=== PATIENT | female | born 1960 | race Caucasian/White ===

== ENCOUNTER 2019-12-14 10:28 | Emergency (ER) | payer OTHER, SELFPAY ==
[2019-12-14 10:31] VITALS: BP 168/93; PULSE 98; RESP 17; TEMP 36.9; O2SAT 92; BMI 39.4
--- NOTE | 2019-12-14 10:42 | RAD_ITS ---
STUDY: X-RAY CHEST REASON FOR EXAM: Female, 59 years old. COUGH, INCREASING SOB, SORE THROAT -- PT HAS ASTHMA TECHNIQUE: Single AP portable view of the chest. COMPARISON: None. FINDINGS: The lungs are clear and expanded. Scattered calcified granulomas. There is no demonstrated pleural abnormality. Normal size heart. Normal mediastinum and maya. Normal visualized pulmonary arteries. Normal visualized aortic arch and descending thoracic aorta. Normal visualized thoracic spine. Normal visualized ribs, clavicles, and shoulders. There is no demonstrated abnormality of the visualized soft tissue structures of the upper abdomen. RAD/Chest 1 View (Portable) IMPRESSION: Normal x-ray examination of the chest. Electronically Signed: Hira Wharton, at 11:14 EDT , Service support ,
--- NOTE | 2019-12-14 10:45 | ED.DCSUM_ITS ---
- ER Visit Summary Date of Service: 12/14/19 Chief Complaint: Cough and shortness of breath History of Present Illness: The patient is a 59 F with a history of asthma. She had cough and shortness of breath over the past week. She took prednisone but it is not helping. She uses her inhalers occasionally. She is not currently on antibiotics. No fevers. No chest pain. No history of blood clots. Physical Examination: Afebrile and vital signs unremarkable. Patient alert and oriented. Normal mood and mentation. No acute distress. Moving, speaking, breathing comfortably. Heart regular. No respiratory distress. Skin normal. Calves soft and supple. Test Results: Chest x-ray pending. Emergency Department Course and Treatment: Patient presents with mild to moderate asthma symptoms. No indication for an alternate diagnosis at this time. There is concern this could be triggered by coronavirus. Precautions were maintained. X-rays negative. Prescription for prednisone, azithromycin. Continue inhalers at home. Maintain contact and social precautions at home for coronavirus. Return for any new or worsening issues. Treatment Plan: As above Disposition: Discharge Impression: Asthma, suspected coronavirus This note was generated with [employer] software. It may contain incorrect words, spelling, and punctuation that were not noted in review of the chart prior to signing ED Disposition - Plan for ED Patient: Referrals: Jorge Luis Israel MD [Primary Care Provider] -
--- NOTE | 2019-12-14 11:33 | ED.DEP ---
ED Disposition - Plan for ED Patient: Instructions: ED REACTIVE [employer] DISEASE Adult Prescriptions: Prednisone [Deltasone] 60 mg PO DAILY #15 tab Prescription Printed Azithromycin [Zithromax Z-Stephan] 250 mg PO UD #1 box Prescription Printed Referrals: Jorge Luis Israel MD [Primary Care Provider] -
[2019-12-14 11:44] VITALS: BP 123/68; PULSE 59; RESP 16; O2SAT 97
== END 2019-12-14 11:50 | disposition home or self-care (01) ==
LOC: ED 11:22
PROVIDERS: Emergency Provider Emergency Medicine; PCP Family Medicine
DX: J45.909 Unspecified asthma, uncomplicated (principal); Z72.0 Tobacco use
CPT/HCPCS: 71045; 99282

== ENCOUNTER → 2020-04-03 | Outpatient (CLI) | payer OTHER, SELFPAY | END | disposition home or self-care (01) | LOC: LABSPEC 10:02 | PROVIDERS: PCP Family Medicine; Referring Provider Family Medicine; Visit Provider Family Medicine | DX: Z20.828 Contact with and (suspected) exposure to other viral communicable diseases (principal) | CPT/HCPCS: 87635; G2023; U0003 ==

== ENCOUNTER 2020-12-04 10:22 | Outpatient (RCR) | payer OTHER, SELFPAY ==
[2020-12-04] MEDS: COVID-19 VACC, MRNA(PFIZER)/PF 30 MCG/0.3 ML SYRINGE IM (10:13)
[2020-12-25] MEDS: COVID-19 VACC, MRNA(PFIZER)/PF 30 MCG/0.3 ML SYRINGE IM (10:03)
== END 2021-02-26 23:59 ==
LOC: IMMUN 10:22
PROVIDERS: PCP Family Medicine; Visit Provider Family Medicine
DX: Z23 Encounter for immunization (principal)
CPT/HCPCS: 0001A; 0002A; 91300

== ENCOUNTER → 2023-06-15 | Outpatient (CLI) | payer OTHER, SELFPAY ==
--- NOTE | 2023-06-15 06:54 | CT_ITS ---
INDICATION: ASYMPTOMATIC MICROSCOPIC HEMATURIA EXAMINATION: CT ABDOMEN AND PELVIS WITH AND WITHOUT CONTRAST - CT Abdomen And Pelvis WO/W Contrast Injection TECHNIQUE: Helically acquired images were obtained of the abdomen and pelvis with noncontrast, corticomedullary venous phase, and delayed phase. Coronal and sagittal reformats of the venous are submitted. Coronal and noncontrast phase reformats created at the workstation. A radiation dose optimization technique was used for this scan. IV Contrast dosage and agent: 100 mL [id number] Oral contrast: None. COMPARISON: Chest radiograph December 14, 2019. FINDINGS: LOWER CHEST: Lung bases are clear. Cardiac size upper limits of normal without pericardial effusion. LIVER: Homogeneous with mild hepatomegaly. No focal mass. GALLBLADDER AND BILIARY TREE: Cholelithiasis of the gallbladder neck without gallbladder distention, wall thickening, or surrounding inflammation.. No gallbladder distension or wall edema. No intra- or extrahepatic biliary ductal dilation. PANCREAS: No focal cystic or solid mass. SPLEEN: Normal size without focal cystic or solid mass. ADRENAL GLANDS: No nodules. KIDNEYS AND URETERS: No nephrolithiasis. No hydronephrosis. Minimal bilateral perinephric stranding which is commonly senescent. Normal renal cortical appearance on provided phases. No urothelial thickening is along the opacified renal collecting system and right ureter. The left ureter is not opacified, degrading evaluation. . URINARY BLADDER: No significant decompressed on initial phases, partially filled with layering contrast on delayed phase without suspicious posterior filling defect. Bladder evaluation is limited by CT.. PERITONEUM: No ascites or free air. No other fluid collection. BOWEL: Minimal hiatal hernia. Otherwise unremarkable stomach. No small bowel distention or focal wall thickening. Moderate to large distal small bowel and proximal to mid colonic stool burden. No colonic wall thickening or surrounding inflammation. Normal appendix. LYMPH NODES: No enlarged mesenteric or retroperitoneal lymph nodes. VESSELS: Aorta is non-dilated. REPRODUCTIVE ORGANS: Anterior uterus with left posterior uterine body subserosal 4.8 cm mass suggestive of fibroid. Symmetric ovaries without evidence of adnexal mass. ABDOMINAL WALL: No discrete abdominal or pelvic wall hernia. BONES: No lytic or blastic abnormality. CT/CT Abd/Pelvis W/WO Contrast IMPRESSION: No specific finding to explain microscopic hematuria. Evaluation of the left ureter is limited by lack of opacification on delayed phase. There is no hydronephrosis or evidence to suggest obstruction. Repeat CT Urogram could be obtained if hematuria persists to further evaluate the left ureter. Additionally urology follow-up is recommended. Bladder can be best further assessed by endoscopic evaluation. Left posterior uterine body subserosal 4.8 cm mass, most likely representing fibroid. Ultrasound and [employer] follow-up is recommended when clinically able if not stable on remote exams. Cholelithiasis. Mild hepatomegaly with otherwise unremarkable parenchyma. Minimal hiatal hernia. Electronically Signed: Abelino Neves MD at 8:22 EDT ,
== END | disposition home or self-care (01) ==
LOC: CT 06:52
PROVIDERS: PCP Family Medicine; Referring Provider Nurse Practitioner; Visit Provider Nurse Practitioner
DX: R31.21 Asymptomatic microscopic hematuria (principal)
CPT/HCPCS: 74178; Q9967